=== PATIENT | female | born 1990 ===

== ENCOUNTER → 2023-04-11 13:02 | Outpatient (BNVA) | payer MEDICAID, SELFPAY | PROVIDERS: Visit Provider Physician Assistant Surgical ==

== ENCOUNTER 2023-05-11 15:04 | Outpatient (AMB) | payer MEDICAID, SELFPAY ==
--- NOTE | 2023-05-11 15:07 | MHC.OFFVISWM ---
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 She heard about our program from a friend. Her goal is to lose weight and achieve a healthy lifestyle. She reports first being concerned about her weight 6 years ago, highest weight to date was 250. Current weight is 239.8 with a BMI of 41.2. She has tried multiple methods of weight loss including fad diets without permanent results. She lives with her children. 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 She wakes at:?7am, and goes to bed at?9 pm. Dinner is at 4 pm. Breakfast: bread, coffee, eggs AM snack: skip Lunch: rice, chicken, salad PM snack: skip Dinner: pasta, salad, potato, chicken, fish After dinner: chips, candy, chocolate Other snacks: as above Liquids: 60-80 oz water, no soda, no juice Alcohol/marijuana/tobacco intake: etoh on special occasions, no cannabis, no tobacco Exercise: walking at work, no gym membership, no machines at home GERD score: 0 ALICIA score: 0 ESS score: 10 QOL score: 44 PFSH Surgical History (Updated 05/11/23 @ 15:39 by RAJAN Azevedo) Hx of section S/P tubal ligation Family History Mother Diabetes Hypertension Father No problems noted. Daughter No problems noted. Daughter No problems noted. Son History of asthma Son No problems noted. Social History (Updated 04/11/23 @ 13:47 by Kala Avila CMA) Alcohol intake: current Alcohol intake frequency: holidays/special occasions only Patient Tobacco Use Status: Former Tobacco user Review of Systems Const All systems reviewed & are unremarkable except as noted in HPI and below Physical Exam Const General: cooperative, healthy appearing and no acute distress Orientation/consciousness: patient oriented x3 HEENT Head: Yes normal to inspection Ears: hearing grossly normal bilaterally General nose exam: Normal external nose present Face and sinus: Yes normal facial exam Eyes General: appearance normal, both eyes and all related structures Resp Effort & Inspection: normal respiratory effort Auscultation: clear to auscultation bilaterally Cardio Rate: regular rate Rhythm: regular rhythm Heart sounds: S1 normal heart sound present and S2 normal heart sound present GI Inspection: Yes normal to inspection, No distended, Yes incision (well healined midline and transverse incisions) and Yes obesity Palpation (GI): Soft to palpation, nontender and no guarding Auscultation: normal bowel sounds Skin General skin exam: no rashes or lesions noted Neuro General: patient oriented x3 Extrem General: No edema Psych Appearance: grossly normal Mental Status: mental status grossly normal Speech and movement: Normal speech and movement present Affect: normal affect Attitude: cooperative Assessment & Plan Assessment & Plan (1) Morbid obesity: Code(s): E66.01 - Morbid (severe) obesity due to excess calories Plan: This is a?32 yo female who will start our SWL program to prepare for bariatric surgery.? Blood work, h pylori , CXR, ECG, Abd US and UGI have been ordered. She is being scheduled for RD and BH initial consultations. She will start SWL classes and watch the first three videos before her next appointment. ? Adequate sleep of 7-8 hours per night discussed, awakening at 7 am and going to bed at 9 pm ? Purchase body composition analyzer scale (Valente santizo or Kwan recommended) and check weight weekly. The best time to do this is first thing in the morning after going to the bathroom. 1. Nutritional counseling: Be sure to careful read the number of scoops per shake Start with 2 Premier Protein shakes ([employer], [employer], [employer]) First shake (2 scoops in 8 oz low fat unsweetened almond milk or water) at 8am-10am, Second shake (1 scoop in 8 oz unsweetened almond milk or water) at 12pm-2pm Dinner at 4pm (9 forks of protein and 9 forks of salad/vegetables). Meal to include lean meat (beef, fish, pork, turkey, chicken), cooked vegetables or a salad with olive oil and/or fruits (berries, pears, apples, kiwi). Avoid salt, breads, potatoes, rice, pasta, desserts. 1 protein bar (Zone Perfect bars at [employer], [employer], or [employer]) at 6pm-8pm. Try to drink 64 oz of water daily and avoid soda and juices. ?2. Each shake would be drunk slowly, like coffee in a period of 2 hours. ?3. Cut each bar in 4 pieces and eat each piece in 30 min ?to make each bar last 2 hours. ?4. I emphasized the importance of measuring accurately the food portion and measure it carefully when serving the food on the plate ?5. The meal portions include 9 full-size forks of meat and 9 full-size forks of salad. You always eat the meat portion but you can replace up to half of the forks of salad/vegetables with rice, potatoes or pasta, or a fruit ?if you like. The less you do it the better weight loss will be. ?6. One full-size fork is what can be scooped on the fork without falling aside and not what can be bit with the fork. Use regular forks like those you find in a typical restaurant. ?7.? Please send me weight measurements as soon as possible and then once a week. Always include your diet and exercise plan. Alternatively come weekly at the office for weight checks and send me the measurements. ?8. Exercise counseling: Begin by watching a stretching for beginners video. Start slowly and begin to stretch your muscles. You should do this before and after each exercise session to prevent injury. Please join [facility] gym near your home. Ask the baccarat manager or one of the trainers how to use the machines if you are unfamiliar with them. Start elliptical with a resistance of 2. Increase resistance by 1 every 3 min to your most comfortable resistance with a max resistance of 8. Reduce the resistance by 1 every 3 minutes back down to 2 and repeat cycles for 300 calories. Alternatively, start treadmill with a speed of 3.0 and incline of 0, increasing incline by 1 every 3 minutes to the highest comfortable level (max 6 for now) then decrease in the same fashion. Repeat process to a goal of 300 calories. Goal of 2000 calories burned or more weekly. You may also consider use of the stationary bike. The easiest would be to chose the fat-burn or interval training program on the machine and do this until you reach the 300 calorie goal. Alternatively, you can manually adjust the resistance in a similar fashion as mentioned above, (resistance of 2-8 with a goal speed of 12 mph). Tracking calories is essential. 9. Alternatively start walking outside daily, tracking calories with a goal of 300 calories per day, daily. You can download the jen nGAP which can track your time, distance and calories while walking outside. You press start in the jen when you start and then stop when you are finished. 10.? It is important to communicate weekly by text 11. Please get labs, EKG and chest X-Ray within 1 week. 12. Discussed and answered all questions regarding?obtained consent to participate in the [facility]?Registry. 13. Please follow the diet plan exactly, without any change. If you do not like something about the plan or you feel hungry, you need to communicate with me so I can help you revise the plan. You should not change the plan yourself. Text me at [phone] 14. Goal is to lose at least 12 pounds in the first month 15. Goal is to lose 10% of your weight before surgery, which is about 24 lbs. Ultimate weight goal: 215 lbs before surgery Patient is morbidly obese and is not considered stable at this time.?I spent a total of 70 minutes reviewing/updating records, examining the patient and counseling the patient on weight management as detailed above. Orders: Orders Vitamin B12 and Folate Today E66.01 - Morbid (severe) obesity due to excess calories Comprehensive Met. Panel Today E66.01 - Morbid (severe) obesity due to excess calories C Reactive Protein Today E66.01 - Morbid (severe) obesity due to excess calories Ferritin Today E66.01 - Morbid (severe) obesity due to excess calories Hemoglobin A1c Today E66.01 - Morbid (severe) obesity due to excess calories Insulin Today E66.01 - Morbid (severe) obesity due to excess calories IRON PROFILE Today E66.01 - Morbid (severe) obesity due to excess calories Lipid Panel Today E66.01 - Morbid (severe) obesity due to excess calories PTHI Today E66.01 - Morbid (severe) obesity due to excess calories TSH reflex Free T4 Today E66.01 - Morbid (severe) obesity due to excess calories Vitamin A Today E66.01 - Morbid (severe) obesity due to excess calories Vitamin B1 Today E66.01 - Morbid (severe) obesity due to excess calories Vitamin D 25-OH Total Today E66.01 - Morbid (severe) obesity due to excess calories Zinc Today E66.01 - Morbid (severe) obesity due to excess calories ECG 12 lead EKG Today E66.01 - Morbid (severe) obesity due to excess calories FL upper GI w air Today E66.01 - Morbid (severe) obesity due to excess calories Complete Blood Count Auto Diff Today E66.01 - Morbid (severe) obesity due to excess calories H Pylori Breath Test Today E66.01 - Morbid (severe) obesity due to excess calories US abdomen comp w elastography Today E66.01 - Morbid (severe) obesity due to excess calories XR chest 2V Today E66.01 - Morbid (severe) obesity due to excess calories Referrals Behavioral Health Referral E66.01 - Morbid (severe) obesity due to excess calories Nutrition/Dietitian Referral E66.01 - Morbid (severe) obesity due to excess calories Coding Level of Care Code New Pt Level 5 (51159) Diagnoses Morbid obesity E66.01 Time Spent (min) 70
[2023-05-11 15:11] VITALS: BP 130/80; PULSE 85; TEMP 36.5; O2SAT 95; BMI 41.2
== END 2023-05-11 17:10 | disposition home or self-care (01) ==
PROVIDERS: Visit Provider Physician Assistant Surgical
DX: E66.01 Morbid (severe) obesity due to excess calories (principal); Z68.41 Body mass index [BMI] 40.0-44.9, adult
CPT/HCPCS: 99205

== ENCOUNTER → 2023-05-11 15:04 | Outpatient (BNVA) | payer MEDICAID, SELFPAY | PROVIDERS: Visit Provider Physician Assistant Surgical | DX: Z11.0 Encounter for screening for intestinal infectious diseases (principal); E66.01 Morbid (severe) obesity due to excess calories; Z68.41 Body mass index [BMI] 40.0-44.9, adult | CPT/HCPCS: 99205; 99211 ==

== ENCOUNTER 2023-05-12 16:17 | Outpatient (REF) | payer MEDICAID, SELFPAY ==
[2023-05-14 13:20] LABS: H Pylori Breath Test Positive (Negative)
== END 2023-05-12 16:18 | disposition home or self-care (01) ==
LOC: HO.LNP 16:17
PROVIDERS: Visit Provider Physician Assistant Surgical
DX: E66.01 Morbid (severe) obesity due to excess calories (principal)
CPT/HCPCS: 83013

== ENCOUNTER → 2023-05-19 08:38 | Outpatient (REF) | payer MEDICAID, SELFPAY ==
--- NOTE | 2023-05-19 08:49 | ECG_ITS ---
Test Reason : E66.1 Blood Pressure : / mmHG Vent. Rate : 071 BPM Atrial Rate : 071 BPM P-R Int : 140 ms QRS Dur : 096 ms QT Int : 388 ms P-R-T Axes : 042 -11 012 degrees QTc Int : 421 ms Normal sinus rhythm Low voltage QRS Cannot rule out Anterior infarct , age undetermined Abnormal ECG No previous ECGs available Referred By: Reji Young Electronically Signed By:JOHN MARTELL MD
[2023-05-19 09:08] LABS: MANUAL DIFF FLAG NO
[2023-05-19 09:35] LABS: Basophils Percent Auto 0.4 % (0-2); Eosinophils Absolute Auto 0.2 X10*3/uL (0.0-0.4); Eosinophils Percent Auto 1.7 % (0-4); Hemoglobin 10.3 g/dl (12.0-16.0); Imm Gran Abs Auto 0.03 X10*3/uL (0.00-0.03); Imm Gran Pct Auto 0.3 % (0.0-0.4); Lymphocytes Absolute Auto 1.5 X10*3/uL (1.2-4.9); Lymphocytes Percent Auto 16.2 % (20-40); Mean Corpuscular HGB Conc 31.2 g/dl (31.0-35.0); Mean Corpuscular Hemoglobin 24.3 pg (27.0-33.0); Mean Corpuscular Volume 77.8 fL (80.0-98.0); Mean Platelet Volume 10.7 fL (9.4-12.3); Monocytes Absolute Auto 0.6 X10*3/uL (0.1-1.2); Monocytes Percent Auto 6.4 % (2-11); Neutrophils Absolute Auto 6.9 x10*3/uL (2.0-8.3); Platelet Count 353 X10*3/uL (160-400); Red Blood Count 4.24 X10*6/uL (4.20-5.50); Red Cell Distribution Width 15.8 % (11.0-16.0); White Blood Count 9.2 X10*3/uL (4.8-10.8)
[2023-05-19 10:10] LABS: Alanine Aminotransferase 14 U/L (0-31); Albumin Level 3.5 g/dL (3.5-5.0); Alkaline Phosphatase 82 U/L (39-117); Anion Gap 14 (12-20); Aspartate Amino Transferase 14 U/L (5-31); Bilirubin Total 0.3 mg/dL (0.0-1.0); Blood Urea Nitrogen 12 mg/dL (9-16); C Reactive Protein 2.89 mg/dL (< or = 0.50); Calcium 8.7 mg/dL (8.4-10.2); Carbon Dioxide 20 mmol/L (22-29); Chloride 109 mmol/L (96-108); Cholesterol 172 mg/dL; Estimated Glomerular Filt Rate > 60; Glucose Random 92 mg/dL (60-115); HDL Cholesterol 61 mg/dL; Iron 16 mcg/dL (30-160); LDL Cholesterol Calculated 97 mg/dl; Percent Iron Saturation 5 % (15-50); Potassium 3.6 mmol/L (3.3-5.1); Sodium 139 mmol/L (135-145); Total Iron Binding Capacity 311 mcg/dL (228-428); Total Protein 6.8 g/dL (6.5-8.0); Triglycerides 70 mg/dL; Unsaturated Iron Binding 295 ug/dL
[2023-05-19 10:14] LABS: Estimated Average Glucose 97 mg/dL; Hemoglobin A1C 84.5543 umol/L
[2023-05-19 10:26] LABS: Ferritin 35 ng/mL (10-122); Insulin 6 uU/mL (2-29); Vitamin D 25-OH Total 20.4 ng/mL (>30)
[2023-05-19 10:34] LABS: Folate 14.1 ng/mL (> or = 4.0); Vitamin B12 495 pg/mL (200-900)
[2023-05-23 13:22] LABS: Calcium (PTHI) 8.7 mg/dL (8.6-10.2); PTHI 69 pg/mL (16-77)
[2023-05-23 17:23] LABS: Zinc 62 mcg/dL (60-130)
[2023-05-25 04:33] LABS: Vitamin A 40 mcg/dL (38-98)
[2023-05-25 11:39] LABS: Vitamin B1 9 nmol/L (8-30)
== END ==
LOC: HO.CARD 08:38
PROVIDERS: Visit Provider Physician Assistant Surgical
DX: E66.01 Morbid (severe) obesity due to excess calories (principal)
CPT/HCPCS: 36415; 80053; 80061; 82306; 82607; 82728; 82746; 83036; 83525; 83540; 83970; 84425; 84443; 84590; 84630; 85025; 86140; 93005

== ENCOUNTER → 2023-05-19 08:49 | Outpatient (BNV) | payer MEDICAID, SELFPAY | PROVIDERS: Visit Provider Internal Medicine Cardiovascular Disease | DX: R94.31 Abnormal electrocardiogram [ECG] [EKG] (principal) | CPT/HCPCS: 93010 ==

== ENCOUNTER 2023-05-25 11:26 | Outpatient (REF) | payer MEDICAID, SELFPAY ==
--- NOTE | ~2023-05-25 | XR_ITS ---
EXAMINATION: XR CHEST CLINICAL INFORMATION: Moderate obesity. COMPARISON: None available. TECHNIQUE: 2 views of the chest were obtained. FINDINGS: The lungs are well expanded. No focal consolidation. No pleural effusion. Cardiac silhouette is within normal limits. XR/XR chest 2V IMPRESSION: No acute abnormality.
== END 2023-05-25 11:27 | disposition home or self-care (01) ==
LOC: HO.XRAY 11:26
PROVIDERS: Visit Provider Physician Assistant Surgical
DX: E66.01 Morbid (severe) obesity due to excess calories (principal)
CPT/HCPCS: 71046

== ENCOUNTER 2023-06-01 09:53 | Outpatient (AMB) | payer MEDICAID, SELFPAY ==
--- NOTE | 2023-06-01 10:31 | MHC.OFFVISWM ---
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 They were last seen in the office on 05/11/23, recorded weight at that time was 239.8 pounds, with a BMI of 41.2. Today's weight is 236.6 pounds and BMI is 40.6. There has been a weight loss of 3.2 pounds since initiating the surgical weight loss program on 05/11/23 with a total body weight loss of 1.3 %. Pre op work up completed as follows: SWL classes:? 0 BH appts: 06/06/23 ? ? RD appts: 06/13/23 Labs: 05/19/23-iron def anemia, low D H. pylori: 05/11/23-pos CXR: 05/25/23-nad EK05/19/23-low voltage, cannot r/o ant inf. 05/20/23-nuc stress test ordered ABD U/S: UGI: The patient reports she has not been able to find the protein shakes and she has not been using it. She has not bought the bars. She also missed several doses of the abx for H Pylori. She is unsure how many doses she missed Current meal plan includes: 2 Premier Protein shakes ([employer], [employer], [employer]) First shake (2 scoops in 8 oz low fat unsweetened almond milk or water) at 8am-10am, Second shake (1 scoop in 8 oz unsweetened almond milk or water) at? 12pm-2pm Dinner at 4pm (9 forks of protein and 9 forks of salad/vegetables). 1 protein bar (Zone Perfect bars at [employer], [facility], or [employer]) at 6pm-8pm. Drinking 48-64 oz of water Current exercise plan includes: walking 30 minutes 3-4 times per week. Not measuring calories. PFSH Surgical History Hx of section S/P tubal ligation Family History Mother Diabetes Hypertension Father No problems noted. Daughter No problems noted. Daughter No problems noted. Son History of asthma Son No problems noted. Social History Alcohol intake: current Alcohol intake frequency: holidays/special occasions only Patient Tobacco Use Status: Former Tobacco user Review of Systems Const All systems reviewed & are unremarkable except as noted in HPI and below Physical Exam Const General: healthy appearing and no acute distress Resp Effort & Inspection: normal respiratory effort Auscultation: clear to auscultation bilaterally Cardio Rate: regular rate Rhythm: regular rhythm GI Auscultation: normal bowel sounds Extrem General: Yes normal to inspection Assessment & Plan Assessment & Plan (1) Morbid obesity: Code(s): E66.01 - Morbid (severe) obesity due to excess calories Plan: States phone broke and doesn't have email. I printed out email for her in japanese and faroese Encouraged to follow the plan if she is unable/unwilling to follow the plans at her next visit than will w/d (2) H. pylori infection: Code(s): A04.8 - Other specified bacterial intestinal infections Plan: schedule re-test in 2 weeks Coding Level of Care Code Est Pt Level 4 (39057) Diagnoses Morbid obesity E66.01 H. pylori infection A04.8 Time Spent (min) 40
[2023-06-01 10:35] VITALS: BP 137/81; PULSE 81; TEMP 35.9; O2SAT 98; BMI 40.6
== END 2023-06-01 11:06 | disposition home or self-care (01) ==
PROVIDERS: Visit Provider Physician Assistant Surgical
DX: E66.01 Morbid (severe) obesity due to excess calories (principal); A04.8 Other specified bacterial intestinal infections
CPT/HCPCS: 99214

== ENCOUNTER → 2023-06-01 09:53 | Outpatient (BNVA) | payer MEDICAID, SELFPAY | PROVIDERS: Visit Provider Physician Assistant Surgical | DX: E66.01 Morbid (severe) obesity due to excess calories (principal); A04.8 Other specified bacterial intestinal infections; Z68.41 Body mass index [BMI] 40.0-44.9, adult | CPT/HCPCS: 99214 ==

== ENCOUNTER 2023-06-06 13:00 | Outpatient (AMB) | payer OTHER, SELFPAY ==
--- NOTE | 2023-06-06 13:14 | A.OFFWM_ITS ---
Intake Intake Visit Reasons: VIDEO BH Intake Allergies No Known Allergies Allergy (Verified 06/01/23 10:34) [facility] Surgical History Hx of section S/P tubal ligation Family History Mother Diabetes Hypertension Father No problems noted. Daughter No problems noted. Daughter No problems noted. Son History of asthma Son No problems noted. Social History Alcohol intake: current Alcohol intake frequency: holidays/special occasions only Patient Tobacco Use Status: Former Tobacco user Behavioral Health Assessment Weight Management Therapy Therapy Notes Details PT is a 32 year old female who presents for initial assessment as part of Surgical Weight-loss management program. PT denied any history of mental health treatment and or past hospitalization/crisis for? behavioral health. Denies any safety concerns around SI and/or self-other harm, also there is no history of substance use reported. There is also no evidence for stress/emotional-eating, and scores from BES suggest minimal risk for binge eating behavior. PHQ- scores also showed no active symptoms/concerns with depression. Mental status exam is withing normal limits, suggesting person's functioning is not impaired. At this time patient is cleared from the behavioral health standpoint. Presenting Concerns Referral Source WMP provider. Reason for referral Completion of behavioral health assessment as part of process for weight-loss surgery. Precipitating Event Obesity. Pt reports her physical performance is not the best and she wants to feel halthier. Living Situation Current Living Situation Rent At risk of losing current housing? No Satisfied with current living situation? Yes Comments Pt lives with boyfriend and 2 children (10 and 7 year old) Food/Weight/Diet Expectations of change She doesn't have a clear number in mind for her weight. Her goal is to feel better with her body and have the same energy she had when younger. Initial goal is to lose 10% of weight before surgery, which is about 24 lbs. Ultimate weight goal: 215 lbs. before surgery History/Relationship with food PT denied any concern with stress/emotional- eating. Her issues were skipping meals. Breakfast was an iced coffee with caramel, milk and sugar. Used to skip lunch, when had lunch was fast food. For dinner was always something quick like a sandwich/pizza or -style (rice/protein/beans/potato salad or green salad) History/Relationship with weight Lowest weight was before pregnancies, it was around 140Lbs. After pregnancies she was over 180Lbs. The past years her weight got out of control due to motherhood and not following a meal plan. History/Relationship with dieting Herbalife, Keto, OTC pills. Used to do these plans for 1-2 months, max of weight loss was 10-15Lbs. Binge Eating Do you frequently eat large amounts of food in short periods of time, not feeling physically hungry? Yes Do you feel out of control when you eat a large amount of food in a short period of time? No Do you eat large amounts of food rapidly and typically alone? No Night Eating Do you wake up at least once during the night to eat? No If you wake up in the night, do you find that it is necessary to eat something in order to fall back asleep? No Do you have little or no appetite in the morning and feel very hungry in the evening, often overeating between dinner and when you go to bed? No Social History Family history and relationship PT has a partner 1 year ago. She has 4 children, 2 daughters who are 19 and 8 y/o and 2 sons who are 10 and 8 y/o. 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 2 live with her and 2 daughters in [place] who lives with a relative. Developmental history and status None reported. Social support Partner, some friends and partner's family. Community support None Mormonism/Spirituality None Cultural/Ethnic information PT is from [place]. She moved to [place] 1 year ago. She was living in [place] since 2009. Mainly [place]. Legal Involvement and History Current or historical involvement with the legal system? None reported Education Highest grade completed 10th Grade. Currently enrolled in educational program? 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 ) Interested in further educational program? 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 ) Wants help to find employment? No Meaningful activities Family activities, go to the park. Financial Situation Describe current financial situation Comfortable Financial assistance? Food [place] [employer] Service? No Mental Health and Addiction Treatment Current/Past substance abuse? No Current/Past addictive behavior concerns? No Psychiatric history Never been in counseling, in crisis and/or hospitalized for mental health. Denied any concerns about SI, self-harm and/or other-harm. Medical and Physical Health Summary Additional Medical History not covered in history None reported Sexual History concerns None reported Physical exam in the last year? No (Doesn't have a pcp.) Pain Screening Current pain? No Pain in the last few months? No Comments Hx of headaches due to not sleeping well. Medications Is the patient compliant with medications? Not applicable Does the patient have Leung Guardian in place? Not applicable Does the patient use complimentary health approaches? No Trauma/Abuse History History of trauma? No Questionnaires PHQ-9 Over the last 2 weeks, how often have you been bothered by any of the following problems? 1. Little interest or pleasure in doing things: not at all 2. Feeling down, depressed, or hopeless: not at all 3. Trouble falling or staying asleep, or sleeping too much: nearly every day 4. Feeling tired or having little energy: several days (due to work, not for depression.) 5. Poor appetite or overeating: not at all 6. Feeling bad about yourself - or that you are a failure or have let yourself or your family down: not at all 7. Trouble concentrating on things, such as reading the newspaper or watching television: not at all 8. Moving or speaking so slowly that other people could have noticed. Or the opposite - being so fidgety or restless that you have been moving around a lot more than usual: not at all 9. Thoughts that you would be better off or of hurting yourself in some way: not at all Total score: 4 Depression Screening Interpretation: Negative Source: Developed by Drs. Seamus Camejo, Liset Lomeli, Quinton Whitlock and colleagues, with an educational raymond from [employer]. Binge Eating Scale Group 1 A. I don't feel self-conscious about my wt. or body size when I'm with others. B. I feel concerned about how I look to others, but it normally does not make me fell disappointed with myself C. I do get self-conscious about my appearance and wt. which makes me feel disappointed in myself. D. I feel very self-conscious about my wt. and frequently I feel intense shame and disgust for myself. I try to avoid social contacts because of my self- consciousness. Response Group 1: A Group 2 A. I don't have any difficulty eating slowly in the proper manner. B. Although I seem to gobble down foods, I don't end up feeling stuffed because of eating to much. C. At times, I tend to eat quickly and then, I feel uncomfortably full afterwards. D. I have the habit of bolting down my food, without really chewing it. When this happens I usually feel uncomfortably stuffed because I've eaten to much. Response Group 2: A Group 3 A. I feel capable to control my eating urges when I want to. B. I feel like I have failed to control my eating more than the average person. C. I feel utterly helpless when it comes to feeling in control of my eating urges. D. Because I feel so helpless about controlling my eating I have become very desperate about trying to get control. Response Group 3: A Group 4 A. I don't have the habit of eating when I'm bored. B. I sometimes eat when I'm bored, but often I'm able to get busy and get my mind off food. C. I have a regular habit of eating when I'm bored, but occasionally, I can use some other activity to get my mind off eating. D. I have a strong habit of eating when I'm bored. Nothing seems to help me breath the habit. Response Group 4: A Group 5 A. I'm usually physically hungry when I eat something. B. Occasionally, I eat something on impulse even though I really am not hungry. C. I have the regular habit of eating foods, that I might not really enjoy, to satisfy a hungry feeling even though physically, I don't need the food. D. Although I'm not physically hungry, I get a hungry feeling in my mouth that only seems to be satisfied when I eat a food, like sandwich, that fills my mouth. Sometimes, when I eat the food to satisfy my mouth hunger, I then spit the food out so I won't gain weight. Response Group 5: A Group 6 A. I don't feel any guilt or self-hate after I overeat. B. After I overeat, occasionally I feel guilt or self-hate. C. Almost all the time I experience strong guilt or self-hate after I overeat. Response Group 6: A Group 7 A. I don't lose total control of my eating when dieting even after periods when I overeat. B. Sometimes when I eat a forbidden food on a diet, I feel like I blew it and eat even more. C. Frequently, I have the habit of saying to myself, I've blown it now, why not go all the way, when I overeat on a diet. When that happens I eat more. D. I have a regular habit of starting a strict diets for myself but I break the diets by going on an eating binge. My life seems to be either a feast or famine. Response Group 7: A Group 8 A. I rarely eat so much food that I feel uncomfortably stuffed afterwards. B. Usually about once a month, I each such a quantity of food, I end up feeling very stuffed. C. I have regular periods during the month when I eat large amounts of food, either at mealtime or at snacks. D. I eat so much food that I regularly feel quite uncomfortable after eating and sometimes a bit nauseous. Response Group 8: A Group 9 A. My level of calorie intake does not go up very high or go down very low on a regular basis. B. Sometimes after I overeat, I will try to reduce my caloric intake to almost nothing to compensate for the excess calories I've eaten. C. I have a regular habit of overeating during the night. It seems that my routine is not to be hungry in the morning but overeat in the evening. D. In my adult years, I have had week-long periods where I practically starve myself. This follows periods when I overeat. It seems I live a life of either feast or famine. Response Group 9: A Group 10 A. I usually am able to stop eating when I want to. I know when enough is enough. B. Every so often, I experience a compulsion to eat which I can't seem to control. C. Frequently, I experience strong urges to eat which I seem unable to control, but at other times I can control my eating urges. D. I feel incapable of controlling urges to eat. I have a fear of not being able to stop eating voluntarily. Response Group 10: A Group 11 A. I don't have any problem stopping eating when I feel full. B. I usually can stop eating when I feel full but occasionally overeat leaving me feeling uncomfortably stuffed. C. I have a problem stopping eating once I start and usually I feel uncomfortably stuffed after I eat a meal. D. Because I have a problem not being able to stop eating when I want, I sometimes have to induce vomiting to relieve my stuffed feeling. Response Group 11: C Group 12 A. I seem to eat just as much when I'm with others, Family social gatherings as when I'm by myself. B. Sometimes, when I'm with other persons, I don't eat as much as I want to eat because I'm self-conscious about my eating. C. Frequently, I eat only a small amount of food when others are present, because I'm very embarrassed about my eating. D. I feel so ashamed about overeating that I pick times to overeat when I know no one will see me. I feel like a closet eater. Response Group 12: A Group 13 A. I eat three meals a day with only an occasional between meal snack. B. I eat 3 meals a day, but I also normally snack between meals. C. When I am snacking heavily, I get in the habit of skipping regular meals. D. There are regular periods when I seem to be continually eating, with no planned meals. Response Group 13: B Group 14 A. I don't think much about trying to control unwanted eating urges. B. At least some of the time, I feel my thoughts are pre-occupied with trying to control my eating urges. C. I feel that frequently I spend much time thinking about how much I ate or about trying not to eat anymore. D. It seems to me that most of my waking hours are pre-occupied by thoughts about eating or not eating. I feel like I'm constantly struggling not to eat. Response Group 14: A Group 15 A. I don't think about food a great deal. B. I have strong craving for food but they last only for brief periods of time. C. I have days when I can't seem to think about anything else but food. D. Most of my days seem to be pre-occupied with thoughts about food. I feel like I live to eat. Response Group 15: A Group 16 A. I usually know whether or not I'm physically hungry. I take the right portion of food to satisfy me. B. Occasionally, I feel uncertain about knowing whether or not I'm physically hungry. A these times it's hard to know how much food I should take to satisfy me. C. Even though I might know how many calories I should eat, I don't have any idea what is a normal amount of food for me. Response Group 16: A Binge Eating Score: 3 Score less than 17 Minimal Risk Score between 18-26 Moderate Risk Score between 27-46 High Risk Assessment & Plan Assessment & Plan (1) Adjustment disorder: Code(s): F43.20 - Adjustment disorder, unspecified Qualifiers: Adjustment disorder type: unspecified type Qualified Code(s): F43.20 - Adjustment disorder, unspecified Plan After completing the assessment and comparing scores from Binge eating scale and PHQ9, at this time, this account underwriter has no concerns about her mental status. Client is cleared and there is no need for follow up. Clinician has advised client about available resources if ever in need to access additional support and has encourage client to participate in post-op groups. Telehealth Telehealth Location of patient: other ([email or web address] Patient Identification confirmed using: Name, : Yes Telehealth method: video Patient verbally consented to treatment: Yes Patient verbally consented to billing insurance company: Yes Patient informed of any privacy concerns related to visit: Yes Minutes spent on Phone/Video with Pt.: 60 Coding Level of Care Code New Pt Tele Psy Diag Pam ([id number]) Patient Type New Diagnoses Adjustment disorder F43.20 Adjustment disorder type: unspecified type Time Spent (min) 60 Comment 1:00-2:00pm
== END 2023-06-06 14:01 | disposition home or self-care (01) ==
LOC: HO.HBST 13:43
PROVIDERS: Visit Provider Counselor Mental Health
DX: F43.20 Adjustment disorder, unspecified (principal)
CPT/HCPCS: 90791

== ENCOUNTER → 2023-06-06 13:00 | Outpatient (BNVA) | payer MEDICAID, SELFPAY | PROVIDERS: Visit Provider Counselor Mental Health ==